=== PATIENT | female | born 1995 | race Caucasian/White ===

== ENCOUNTER 2019-05-12 22:41 | Emergency (ER) | payer OTHER ==
[2019-05-13] MEDS ORDERED: Acetaminophen 325 MG Tab PO ONE (00:47)
--- NOTE | 2019-05-13 00:52 | EDM.PDOC ---
ED HPI GENERAL MEDICAL PROBLEM - General Chief Complaint: Lower Extremity Injury/Pain Stated Complaint: INJURED L FOOT Time Seen by Provider: 05/13/19 00:40 Source of Information: Reports: Patient History Limitations: Reports: No Limitations - History of Present Illness INITIAL COMMENTS - FREE TEXT/NARRATIVE: This 23 yo female patient reports to the ED with left lateral foot and anterior foot pain. The patient reports she was playing with her dog when she tripped. The patient reports she heard a "pop" during the fall. The patient reports the incident happened at about 1930 last night. The patient has not been able to put any weight on her left foot since the time of the incident. Onset Date: 05/12/19 Onset Time: 19:30 Duration: Constant Location: Reports: Lower Extremity, Left Quality: Reports: Ache, Sharp, Throbbing Severity: Moderate Improves with: Reports: None Worsens with: Reports: None Context: Reports: Other Associated Symptoms: Reports: No Other Symptoms Left Foot Pain Score (Numeric/FACES): 8 - Related Data Allergies Allergy/AdvReac Type Severity Reaction Status Date / Time NSAIDS (Non-Steroidal Allergy Rash Verified 05/13/19 00:25 Anti-Inflamma Home Meds: Home Meds Escitalopram [Lexapro] 10 mg PO DAILY 05/13/19 [History] Past Medical History HEENT History: Reports: Impaired Vision Psychiatric History: Reports: Depression - Past Surgical History HEENT Surgical History: Reports: Other (See Below) Other HEENT Surgeries/Procedures: wisdom teeth removed GI Surgical History: Reports: Appendectomy Female Surgical History: Reports: Section Social & Family History - Tobacco Use Smoking Status *Q: Current Every Day Smoker Years of Tobacco use: 3 Packs/Tins Daily: 1 Second Hand Smoke Exposure: Yes - Recreational Drug Use Recreational Drug Use: No Review of Systems - Review of Systems Review Of Systems: ROS reveals no pertinent complaints other than HPI. ED EXAM, GENERAL - Physical Exam Exam: See Below Exam Limited By: No Limitations General Appearance: Alert, WD/WN, Mild Distress Eye Exam: Bilateral Eye: EOMI, Normal Inspection, PERRL Ears: Normal External Exam, Normal Canal, Hearing Grossly Normal, Normal TMs Nose: Normal Inspection, Normal Mucosa, No Blood Throat/Mouth: Normal Inspection, Normal Lips, Normal Teeth, Normal Gums, Normal Oropharynx, Normal Voice, No Airway Compromise Head: Atraumatic, Normocephalic Neck: Normal Inspection, Supple, Non-Tender, Full Range of Motion Respiratory/Chest: No Respiratory Distress, Lungs Clear, Normal Breath Sounds, No Accessory Muscle Use, Chest Non-Tender Cardiovascular: Normal Peripheral Pulses, Regular Rate, Rhythm, No Edema, No Gallop, No JVD, No Murmur, No Rub GI/Abdominal: Normal Bowel Sounds, Soft, Non-Tender, No Organomegaly, No Distention, No Abnormal Bruit, No Mass (Female) Exam: Deferred Rectal (Female) Exam: Deferred Back Exam: Normal Inspection, Full Range of Motion, NT Extremities: Leg Pain (left lateral foot pain) Neurological: Alert, Oriented, CN II-XII Intact, Normal Cognition, Normal Gait, Normal Reflexes, No Motor/Sensory Deficits Psychiatric: Normal Affect, Normal Mood Skin Exam: Warm, Dry, Intact, Normal Color, No Rash Lymphatic: No Adenopathy Course - Vital Signs Last Recorded V/S: Last Vital Signs Temp 36.9 C 05/13/19 00:20 Pulse 101 H 05/13/19 00:20 Resp 18 05/13/19 00:20 BP 112/62 05/13/19 00:20 Pulse Ox 100 05/13/19 00:20 - Orders/Labs/Meds Orders: Active Orders 24 hr Category Date Time Status Foot Comp Min 3V Lt [CR] Urgent Exams 05/13/19 00:39 Taken DME for Discharge [COMM] Urgent Oth 05/13/19 01:35 Ordered Meds: Medications Discontinued Medications Generic Name Dose Route Start Last Admin Trade Name Freq PRN Reason Stop Dose Admin Acetaminophen 650 mg 05/13/19 00:47 05/13/19 01:22 Tylenol PO 05/13/19 00:48 650 mg NOW ONE Administration Departure - Departure Time of Disposition: 01:35 Disposition: Home, Self-Care 01 Condition: Fair Clinical Impression: Strain of left foot Qualifiers: Encounter type: initial encounter Qualified Code(s): S96.912A - Strain of unspecified muscle and tendon at ankle and foot level, left foot, initial encounter Left ankle strain Qualifiers: Encounter type: initial encounter Qualified Code(s): S96.912A - Strain of unspecified muscle and tendon at ankle and foot level, left foot, initial encounter - Discharge Information *PRESCRIPTION DRUG MONITORING PROGRAM REVIEWED*: Not Applicable *COPY OF PRESCRIPTION DRUG MONITORING REPORT IN PATIENT [facility]: Not Applicable Instructions: Ankle Sprain, [id number], Crutch Use, Adult, [id number] Forms: ED Department Discharge Care Plan Goals: The patient was advised of the examination and x-ray results during the visit. The patient was placed in a walking boot to immobilize her ankle and foot during the visit. The patient did come with a friend's crutches which she agreed to use. The patient was encouraged to follow-up with her primary care facility if her symptoms continued or if the symptoms get worse over the next week. If the patient has any additional symptoms or concerns, the patient should either return to the emergency department or visit her primary care facility. - My Orders Last 24 Hours: My Active Orders 05/13/19 00:39 Foot Comp Min 3V Lt [CR] Urgent 05/13/19 01:35 DME for Discharge [COMM] Urgent - Assessment/Plan Last 24 Hours: My Active Orders 05/13/19 00:39 Foot Comp Min 3V Lt [CR] Urgent 05/13/19 01:35 DME for Discharge [COMM] Urgent
== END 2019-05-13 01:55 | disposition home or self-care (01) ==
LOC: DL.ED 22:41
DX: S96.912A Strain of unspecified muscle and tendon at ankle and foot level, left foot, initial encounter (principal); F32.9 Major depressive disorder, single episode, unspecified; F17.210 Nicotine dependence, cigarettes, uncomplicated; Z88.8 Allergy status to other drugs, medicaments and biological substances; Z79.899 Other long term (current) drug therapy; W01.0XXA Fall on same level from slipping, tripping and stumbling without subsequent striking against object, initial encounter
CPT/HCPCS: 73630; 99283; A9270

== ENCOUNTER 2020-01-28 22:53 | Emergency (ER) | payer OTHER ==
[2020-01-28] MEDS ORDERED: Sodium Chloride 0.9% 1,000 ML IV ONE (23:54)
[2020-01-28] MEDS ORDERED: Ondansetron 4 MG/2 ML SDV IVPUSH ONE (23:54)
[2020-01-28] MEDS ORDERED: Pantoprazole 80 MG in Sodium Chloride 0.9% 100 ML IV ONE (23:54)
[2020-01-29 00:21] LABS: ANION GAP 10.9 mEq/L (7-13); CHLORIDE,CL 103 mmol/L (98-107); SODIUM,NA 140 mmol/L (136-145)
--- NOTE | 2020-01-29 01:16 | EDM.PDOC ---
ED HPI GENERAL MEDICAL PROBLEM - General Chief Complaint: Gastrointestinal Problem Stated Complaint: PUKING UP BLOOD 10 MINIUTES AGO Time Seen by Provider: 01/28/20 23:45 Source of Information: Reports: Patient History Limitations: Reports: No Limitations - History of Present Illness INITIAL COMMENTS - FREE TEXT/NARRATIVE: threw up blood x 2 tonight after eating pizza. Photos, undigested food with one corner of photo with small amount of blood. At lest weekly ETOH, Heavier use this week. No fever chills or cough. Abdominal Pain Score (Numeric/FACES): 8 - Related Data Allergies Allergy/AdvReac Type Severity Reaction Status Date / Time NSAIDS (Non-Steroidal Allergy Rash Verified 01/28/20 23:43 Anti-Inflamma Home Meds: Home Meds QUEtiapine [SEROquel] 50 mg PO BEDTIME 01/29/20 [History] Past Medical History HEENT History: Reports: Impaired Vision Psychiatric History: Reports: Depression - Past Surgical History HEENT Surgical History: Reports: Other (See Below) Other HEENT Surgeries/Procedures: wisdom teeth removed GI Surgical History: Reports: Appendectomy Female Surgical History: Reports: Section Social & Family History - Family History Family Medical History: Noncontributory - Tobacco Use Smoking Status *Q: Current Every Day Smoker Years of Tobacco use: 4 Packs/Tins Daily: 0.5 - Caffeine Use Caffeine Use: Reports: Soda - Alcohol Use Days Per Week of Alcohol Use: 1 Number of Drinks Per Day: 0 Total Drinks Per Week: 0 - Recreational Drug Use Recreational Drug Use: No ED ROS GENERAL - Review of Systems Review Of Systems: Comprehensive ROS is negative, except as noted in HPI. ED EXAM, GI/ABD - Physical Exam Exam: See Below Exam Limited By: No Limitations General Appearance: Alert, No Apparent Distress Eyes: Bilateral: EOMI Ears: Normal External Exam Nose: Normal Inspection Throat/Mouth: Normal Inspection Head: Atraumatic, Normocephalic Neck: Normal Inspection Respiratory/Chest: No Respiratory Distress, Lungs Clear, Normal Breath Sounds Cardiovascular: Normal Peripheral Pulses, Regular Rate, Rhythm GI/Abdominal Exam: Normal Bowel Sounds, Soft, Non-Tender Back Exam: Full Range of Motion Extremities: Normal Inspection Neurological: Alert, Oriented, Normal Cognition Psychiatric: Normal Affect, Flat Affect Skin Exam: Warm, Dry, Intact, Normal Color Course - Vital Signs Last Recorded V/S: Last Vital Signs Temp 98.3 F 01/28/20 23:43 Pulse 107 H 01/28/20 23:43 Resp 16 01/28/20 23:43 BP 125/75 01/29/20 00:02 Pulse Ox 96 01/28/20 23:43 - Orders/Labs/Meds Labs: Laboratory Tests 01/28/20 01/28/20 01/29/20 Range/Units 23:54 23:54 00:06 WBC 8.0 (5.0-10.0) 10^3/uL RBC 4.88 (4.2-5.4) 10^6/uL Hgb 14.1 (12.0-16.0) g/dL Hct 40.8 (37.0-47.0) % MCV 83.6 (80-100) fL MCH 28.9 (27.0-34.0) pg MCHC 34.6 (33.0-35.0) g/dL Plt Count 218 (150-450) 10^3/uL Neut % (Auto) 58.9 (42.2-75.2) % Lymph % (Auto) 28.5 (20.5-50.1) % [place] % (Auto) 7.0 (2-8) % Eos % (Auto) 5.1 H (1.0-3.0) % Baso % (Auto) 0.5 (0.0-1.0) % Sodium 140 (136-145) mmol/L Potassium 3.9 (3.5-5.1) mmol/L Chloride 103 (98-107) mmol/L Carbon Dioxide 30 (21-32) mmol/L Anion Gap 10.9 (7-13) mEq/L BUN 16 (7-18) mg/dL Creatinine 0.68 (0.55-1.02) mg/dL Est Cr Clr Drug Dosing 116.77 mL/min Estimated GFR (MDRD) > 60 BUN/Creatinine Ratio 23.5 (No establ ref range) Glucose 98 (74-99) mg/dL Calcium 8.3 L (8.5-10.1) mg/dL Total Bilirubin 0.2 (0.2-1.0) mg/dL AST 48 H (15-37) U/L ALT 66 H (14-59) U/L Alkaline Phosphatase 96 (46-116) U/L Total Protein 7.5 (6.4-8.2) g/dL Albumin 3.7 (3.4-5.0) g/dL Globulin 3.8 Albumin/Globulin Ratio 1.0 Amylase 37 (25-115) U/L Lipase 125 (73-393) U/L Urine Color Yellow (YELLOW) Urine Appearance Clear (CLEAR) Urine pH 6.5 (5.0-9.0) Ur Specific [place] 1.025 (1.005-1.030) Urine Protein Negative (NEGATIVE) Urine Glucose (UA) Negative (NEGATIVE) Urine Ketones Trace H (NEGATIVE) Urine Occult Blood Negative (NEGATIVE) Urine Nitrite Negative (NEGATIVE) Urine Bilirubin Negative (NEGATIVE) Urine Urobilinogen 0.2 (0.2-1.0) mg/dL Ur Leukocyte Esterase Negative (NEGATIVE) Urine HCG, Qual Urine Opiates Screen (NEGATIVE) Ur Oxycodone Screen (NEGATIVE) Urine Methadone Screen (NEGATIVE) Ur Barbiturates Screen (NEGATIVE) U Tricyclic Antidepress (NEGATIVE) Ur Phencyclidine Scrn (NEGATIVE) Ur Amphetamine Screen (NEGATIVE) U Methamphetamines Scrn (NEGATIVE) Urine MDMA Screen (NEGATIVE) U Benzodiazepines Scrn (NEGATIVE) Urine Cocaine Screen (NEGATIVE) U Marijuana (THC) Screen (NEGATIVE) Ethyl Alcohol < 3 (0) mg/dL 01/29/20 01/29/20 Range/Units 00:06 00:06 WBC (5.0-10.0) 10^3/uL RBC (4.2-5.4) 10^6/uL Hgb (12.0-16.0) g/dL Hct (37.0-47.0) % MCV (80-100) fL MCH (27.0-34.0) pg MCHC (33.0-35.0) g/dL Plt Count (150-450) 10^3/uL Neut % (Auto) (42.2-75.2) % Lymph % (Auto) (20.5-50.1) % [place] % (Auto) (2-8) % Eos % (Auto) (1.0-3.0) % Baso % (Auto) (0.0-1.0) % Sodium (136-145) mmol/L Potassium (3.5-5.1) mmol/L Chloride (98-107) mmol/L Carbon Dioxide (21-32) mmol/L Anion Gap (7-13) mEq/L BUN (7-18) mg/dL Creatinine (0.55-1.02) mg/dL Est Cr Clr Drug Dosing mL/min Estimated GFR (MDRD) BUN/Creatinine Ratio (No establ ref range) Glucose (74-99) mg/dL Calcium (8.5-10.1) mg/dL Total Bilirubin (0.2-1.0) mg/dL AST (15-37) U/L ALT (14-59) U/L Alkaline Phosphatase (46-116) U/L Total Protein (6.4-8.2) g/dL Albumin (3.4-5.0) g/dL Globulin Albumin/Globulin Ratio Amylase (25-115) U/L Lipase (73-393) U/L Urine Color (YELLOW) Urine Appearance (CLEAR) Urine pH (5.0-9.0) Ur Specific [place] (1.005-1.030) Urine Protein (NEGATIVE) Urine Glucose (UA) (NEGATIVE) Urine Ketones (NEGATIVE) Urine Occult Blood (NEGATIVE) Urine Nitrite (NEGATIVE) Urine Bilirubin (NEGATIVE) Urine Urobilinogen (0.2-1.0) mg/dL Ur Leukocyte Esterase (NEGATIVE) Urine HCG, Qual Negative Urine Opiates Screen Negative (NEGATIVE) Ur Oxycodone Screen Negative (NEGATIVE) Urine Methadone Screen Negative (NEGATIVE) Ur Barbiturates Screen Negative (NEGATIVE) U Tricyclic Antidepress Positive H (NEGATIVE) Ur Phencyclidine Scrn Negative (NEGATIVE) Ur Amphetamine Screen Negative (NEGATIVE) U Methamphetamines Scrn Negative (NEGATIVE) Urine MDMA Screen Negative (NEGATIVE) U Benzodiazepines Scrn Negative (NEGATIVE) Urine Cocaine Screen Negative (NEGATIVE) U Marijuana (THC) Screen Negative (NEGATIVE) Ethyl Alcohol (0) mg/dL Meds: Medications Discontinued Medications Generic Name Dose Route Start Last Admin Trade Name Freq PRN Reason Stop Dose Admin Sodium Chloride 1,000 mls @ 999 mls/hr 01/28/20 23:54 01/29/20 00:09 Normal Saline IV 01/29/20 00:54 999 mls/hr .BOLUS ONE Administration Pantoprazole Sodium 80 mg/ 100 mls @ 200 mls/hr 01/28/20 23:54 01/29/20 00:09 Sodium Chloride IV 01/29/20 00:23 200 mls/hr .BOLUS ONE Administration Ondansetron HCl 4 mg 01/28/20 23:54 01/29/20 00:09 Zofran IVPUSH 01/28/20 23:55 4 mg ONETIME ONE Administration Departure - Departure Time of Disposition: 01:02 Disposition: Home, Self-Care 01 Condition: Good Clinical Impression: Vomiting Qualifiers: Vomiting type: hematemesis Nausea presence: unspecified Qualified Code(s): K92.0 - Hematemesis - Discharge Information *PRESCRIPTION DRUG MONITORING PROGRAM REVIEWED*: No *COPY OF PRESCRIPTION DRUG MONITORING REPORT IN PATIENT [facility]: No Instructions: Vomiting, Adult Forms: ED Department Discharge Additional Instructions: soft bland diet avoid alcohol caffeine and spicy food omeprazole 20mg daily clinic follow up next week Sepsis Event Note (ED) - Evaluation Sepsis Screening Result: No Definite Risk - Focused Exam Vital Signs: Vital Signs Temp Pulse Resp BP Pulse Ox 01/29/20 00:02 125/75 01/28/20 23:43 98.3 F 107 H 16 97/68 96
== END 2020-01-29 01:17 | disposition home or self-care (01) ==
LOC: DL.ED 22:53
DX: K92.0 Hematemesis (principal); F32.9 Major depressive disorder, single episode, unspecified; F17.210 Nicotine dependence, cigarettes, uncomplicated; Z88.6 Allergy status to analgesic agent; Z79.899 Other long term (current) drug therapy
CPT/HCPCS: 36415; 80053; 80305; 80307; 81003; 81025; 82150; 83690; 85025; 96361; 96374; 96375; 99284; C9113; J2405; J7030; J7050

== ENCOUNTER 2023-02-07 17:52 | Emergency (ER) | payer OTHER ==
[2023-02-07 18:50] LABS: BASOPHILS PERCENT AUTO 0.2 % (0.0-1.0); EOSINOPHILS PERCENT AUTO 3.3 % (1.0-3.0); HEMATOCRIT 35.5 % (37.0-47.0); HEMOGLOBIN 12.4 g/dL (12.0-16.0); LYMPHOCYTES PERCENT AUTO 16.4 % (20.5-50.1); MEAN CORPUSCULAR HEMOGLOBIN 28.7 pg (27.0-34.0); MEAN CORPUSCULAR HGB CONC 34.9 g/dL (33.0-35.0); MEAN CORPUSCULAR VOLUME 82.2 fL (80-100); NEUTROPHILS PERCENT AUTO 73.1 % (42.2-75.2); PLATELET COUNT,PLT 231 10^3/uL (150-450); RED BLOOD CELL COUNT 4.32 10^6/uL (4.2-5.4); WHITE BLOOD CELL COUNT,WBC 8.7 10^3/uL (5.0-10.0)
[2023-02-07 19:17] LABS: APPEARANCE,URINE CLEAR (CLEAR); BILIRUBIN,URINE NEGATIVE (NEGATIVE); COLOR,URINE YELLOW (YELLOW); GLUCOSE,URINE NEGATIVE (NEGATIVE); KETONES,URINE NEGATIVE (NEGATIVE); LEUKOCYTE ESTERASE,URINE NEGATIVE (NEGATIVE); NITRITE,URINE NEGATIVE (NEGATIVE); OCCULT BLOOD,URINE SMALL (NEGATIVE); PROTEIN,URINE NEGATIVE (NEGATIVE); UROBILINOGEN,URINE 0.2 mg/dL (0.2-1.0)
[2023-02-07 19:44] LABS: BACTERIA,URINE FEW /HPF (0-FEW/HPF); EPITHELIAL CELLS,URINE FEW /HPF (NOT SEEN); RBC,URINE 0-5 /HPF (0-5); WBC,URINE 0-5 /HPF (0-5/HPF)
== END 2023-02-07 22:13 | disposition home or self-care (01) ==
LOC: DL.ED 17:52
DX: O20.9 Hemorrhage in early pregnancy, unspecified (principal); Z90.49 Acquired absence of other specified parts of digestive tract; Z98.890 Other specified postprocedural states; Z88.6 Allergy status to analgesic agent; Z3A.12 12 weeks gestation of pregnancy
CPT/HCPCS: 36415; 76801; 81001; 84702; 85025; 86900; 86901; 99284

== ENCOUNTER 2023-07-31 08:40 | Inpatient (IN) | payer OTHER ==
[2023-07-31] MEDS: Lactated Ringers 1,000 ML IV SCH ×2 (08:50→12:02)
[2023-07-31] MEDS ORDERED: Citric Acid/Sodium Citrate Solution 30 ML Cup PO ONE (08:55)
[2023-07-31] MEDS ORDERED: Tranexamic Acid 1,000 MG in Sodium Chloride 0.9% 100 ML IV PRN (08:55)
[2023-07-31] MEDS ORDERED: Oxytocin 10 Units/1 ML SDV IM PRN (08:55)
[2023-07-31] MEDS ORDERED: Methylergonovine 0.2 MG Tab PO PRN (08:55)
[2023-07-31] MEDS ORDERED: Misoprostol 400 MCG (4 X 100 MCG TAB) RECTAL ONE (08:55)
[2023-07-31] MEDS ORDERED: Carboprost Tromethamine 250 MCG/1 ML Amp IM PRN (08:55)
[2023-07-31] MEDS ORDERED: Sodium Chloride 0.9% 10 ML Syringe FLUSH PRN (08:55)
[2023-07-31] MEDS ORDERED: Lactated Ringers 1,000 ML IV SCH ×2 (09:00→12:45)
[2023-07-31] MEDS ORDERED: Oxytocin/Normal Saline 30 UNIT/500 ML BAG IV SCH (09:00)
[2023-07-31] MEDS ORDERED: ceFAZolin 1 GM Vial ONE (09:02)
[2023-07-31 09:05] LABS: BASOPHILS PERCENT AUTO 0.2 % (0.0-1.0); EOSINOPHILS PERCENT AUTO 0.9 % (1.0-3.0); HEMATOCRIT 36.3 % (37.0-47.0); HEMOGLOBIN 12.4 g/dL (12.0-16.0); LYMPHOCYTES PERCENT AUTO 11.7 % (20.5-50.1); MEAN CORPUSCULAR HEMOGLOBIN 27.7 pg (27.0-34.0); MEAN CORPUSCULAR HGB CONC 34.2 g/dL (33.0-35.0); MEAN CORPUSCULAR VOLUME 81.2 fL (80-100); MONOCYTES PERCENT AUTO 6.8 % (2-8); NEUTROPHILS PERCENT AUTO 80.4 % (42.2-75.2); PLATELET COUNT,PLT 243 10^3/uL (150-450); RED BLOOD CELL COUNT 4.47 10^6/uL (4.2-5.4); WHITE BLOOD CELL COUNT,WBC 9.8 10^3/uL (5.0-10.0)
[2023-07-31] MEDS ORDERED: ceFAZolin 2 GM Vial IVPUSH ONE (09:08)
[2023-07-31] MEDS ORDERED: fentaNYL 100 MCG/2 ML SDV IV ONE (09:08)
[2023-07-31] MEDS ORDERED: Tranexamic Acid 1,000 MG/10 ML Vial IV ONE (09:08)
[2023-07-31] MEDS ORDERED: Ondansetron 4 MG/2 ML SDV IV ONE (09:08)
[2023-07-31] MEDS ORDERED: Lactated Ringers 1,000 ML IV ONE (09:08)
[2023-07-31] MEDS ORDERED: ePHEDrine 50 MG/ML SDV IV ONE (09:08)
[2023-07-31] MEDS ORDERED: HYDROmorphone 1 MG/ML Syringe IV ONE (09:08)
[2023-07-31] MEDS ORDERED: ceFAZolin 2 GM Vial IV ONE (09:08)
[2023-07-31] MEDS ORDERED: fentaNYL 100 MCG/2 ML SDV ONE (10:22)
[2023-07-31] MEDS ORDERED: diphenhydrAMINE 50 MG/ML SDV IVPUSH PRN ×2 (12:33→12:41)
[2023-07-31] MEDS ORDERED: Methylergonovine 0.2 MG/1 ML Amp IM PRN (12:41)
[2023-07-31] MEDS ORDERED: ePHEDrine 50 MG/ML SDV IVPUSH PRN (12:41)
[2023-07-31] MEDS ORDERED: Acetaminophen 325 MG Tab PO PRN (12:41)
[2023-07-31] MEDS ORDERED: Naloxone 2 MG/2 ML Syringe IVPUSH PRN (12:41)
[2023-07-31] MEDS ORDERED: Acetaminophen/oxyCODONE 325-5 MG Tab PO PRN (12:41)
[2023-07-31] MEDS: Simethicone 80 MG Tab.Chew PO SCH ×4 (14:08→22:04)
[2023-07-31] MEDS: Sodium Chloride 0.9% 10 ML Syringe FLUSH SCH ×2 (14:09→22:04)
[2023-07-31] MEDS: Acetaminophen/oxyCODONE 325-5 MG Tab PO PRN ×2 (15:33→19:31)
[2023-07-31] MEDS: Docusate Sodium 100 MG Cap PO PRN ×2 (15:33→19:31)
[2023-08-01] MEDS: Acetaminophen/oxyCODONE 325-5 MG Tab PO PRN ×5 (01:15→21:45)
[2023-08-01 07:29] LABS: HEMATOCRIT 30.4 % (37.0-47.0); HEMOGLOBIN 10.1 g/dL (12.0-16.0); MEAN CORPUSCULAR HEMOGLOBIN 27.8 pg (27.0-34.0); MEAN CORPUSCULAR HGB CONC 33.2 g/dL (33.0-35.0); MEAN CORPUSCULAR VOLUME 83.7 fL (80-100); RED BLOOD CELL COUNT 3.63 10^6/uL (4.2-5.4); WHITE BLOOD CELL COUNT,WBC 5.8 10^3/uL (5.0-10.0)
[2023-08-01] MEDS: Sodium Chloride 0.9% 10 ML Syringe FLUSH SCH (09:00)
[2023-08-01] MEDS: Simethicone 80 MG Tab.Chew PO SCH ×4 (09:07→21:44)
[2023-08-01] MEDS: Prenatal Multivitamin with Calcium/Folic Acid/Iron Tab PO SCH (09:08)
[2023-08-01] MEDS: Docusate Sodium 100 MG Cap PO PRN ×2 (09:09→21:44)
[2023-08-01] MEDS: Ondansetron 4 MG/2 ML SDV IVPUSH PRN (09:16)
[2023-08-01] MEDS ORDERED: Cyclobenzaprine 10 MG Tab PO PRN (10:26)
[2023-08-01] MEDS ORDERED: Aspirin 325 MG Tab.EC PO ONE (10:26)
[2023-08-01] MEDS ORDERED: Ferrous Sulfate 325 MG Tab ONE (13:25)
[2023-08-01] MEDS: Ferrous Sulfate 325 MG Tab PO SCH (13:25)
[2023-08-01] MEDS ORDERED: Metoclopramide 10 MG/2 ML SDV IVPUSH ONE (21:54)
[2023-08-02] MEDS: Acetaminophen/oxyCODONE 325-5 MG Tab PO PRN ×3 (02:36→14:04)
[2023-08-02] MEDS: Sodium Chloride 0.9% 10 ML Syringe FLUSH SCH ×2 (02:37→08:14)
[2023-08-02] MEDS: Simethicone 80 MG Tab.Chew PO SCH ×2 (08:10→14:05)
[2023-08-02] MEDS: Docusate Sodium 100 MG Cap PO PRN (08:12)
[2023-08-02] MEDS: Prenatal Multivitamin with Calcium/Folic Acid/Iron Tab PO SCH (08:12)
[2023-08-02] MEDS: Ferrous Sulfate 325 MG Tab PO SCH (08:13)
[2023-08-02 08:47] LABS: HEMATOCRIT 33.6 % (37.0-47.0); HEMOGLOBIN 11.1 g/dL (12.0-16.0); MEAN CORPUSCULAR HEMOGLOBIN 27.8 pg (27.0-34.0); WHITE BLOOD CELL COUNT,WBC 7.5 10^3/uL (5.0-10.0)
[2023-08-02 09:06] LABS: CREATININE 0.67 mg/dL (0.55-1.02); EST CRCL DRUG DOSING (CG) 115.5 mL/min; URIC ACID 7.1 mg/dL (2.6-6.0)
[2023-08-02] MEDS ORDERED: Measles, Mumps & Rubella Vaccine 0.5 ML SDV SUBCUT ONE (09:25)
[2023-08-02] MEDS: Ondansetron 4 MG/2 ML SDV IVPUSH PRN (11:10)
[2023-08-02 11:58] LABS: APPEARANCE,URINE CLEAR (CLEAR); BILIRUBIN,URINE NEGATIVE (NEGATIVE); COLOR,URINE YELLOW (YELLOW); GLUCOSE,URINE NEGATIVE (NEGATIVE); KETONES,URINE NEGATIVE (NEGATIVE); LEUKOCYTE ESTERASE,URINE NEGATIVE (NEGATIVE); NITRITE,URINE NEGATIVE (NEGATIVE); OCCULT BLOOD,URINE MODERATE (NEGATIVE); PROTEIN,URINE NEGATIVE (NEGATIVE); UROBILINOGEN,URINE 0.2 mg/dL (0.2-1.0)
[2023-08-02 12:10] LABS: CREATININE,URINE RAND 96.36 mg/dL (No establ ref range); PROTEIN CREATININE RATIO,URINE 268.8 mg/g (<150.0); PROTEIN,URINE RANDOM 25.9 mg/dL (0.0-11.9)
[2023-08-02] MEDS ORDERED: fentaNYL 100 MCG/2 ML SDV IV ONE (16:35)
== END 2023-08-02 16:36 | disposition home or self-care (01) | DRG 787 ==
LOC: DL.OBCHECK 08:40 → DL.OB 09:02
PROVIDERS: ADMIT Family Medicine; ATTEND Family Medicine
PROC: 10D00Z1 Extraction of Products of Conception, Low, Open Approach (ICD-10-PCS; principal; 2023-07-31 09:00)
DX: O34.211 Maternal care for low transverse scar from previous cesarean delivery (principal); O99.354 Diseases of the nervous system complicating childbirth; O99.824 Streptococcus B carrier state complicating childbirth; O99.214 Obesity complicating childbirth; Z37.0 Single live birth; Z3A.37 37 weeks gestation of pregnancy; G43.909 Migraine, unspecified, not intractable, without status migrainosus
CPT/HCPCS: 01961; 36415; 81003; 82565; 82570; 83615; 84156; 84450; 84460; 84520; 84550; 85025; 85027; 86850; 86900; 86901; 90471; 90707; 94010; A9270-GY; J0690; J1170; J1200; J2405; J2590; J2765; J3010; J3490; J7120

== ENCOUNTER 2023-12-14 13:10 | Emergency (ER) | payer SELFPAY ==
[2023-12-14] MEDS: Ondansetron 4 MG Tab.DIS PO ONE (13:43)
[2023-12-14 13:45] LABS: BASOPHILS PERCENT AUTO 0.7 % (0.0-1.0); EOSINOPHILS PERCENT AUTO 5.1 % (1.0-3.0); HEMATOCRIT 38.1 % (37.0-47.0); HEMOGLOBIN 13.1 g/dL (12.0-16.0); LYMPHOCYTES PERCENT AUTO 19.8 % (20.5-50.1); MEAN CORPUSCULAR HEMOGLOBIN 26.4 pg (27.0-34.0); MEAN CORPUSCULAR HGB CONC 34.4 g/dL (33.0-35.0); MEAN CORPUSCULAR VOLUME 76.7 fL (80-100); MONOCYTES PERCENT AUTO 6.2 % (2-8); NEUTROPHILS PERCENT AUTO 68.2 % (42.2-75.2); PLATELET COUNT,PLT 247 10^3/uL (150-450); RED BLOOD CELL COUNT 4.97 10^6/uL (4.2-5.4); WHITE BLOOD CELL COUNT,WBC 7.5 10^3/uL (5.0-10.0)
[2023-12-14] MEDS: Ondansetron 4 MG/2 ML SDV IVPUSH ONE (14:06)
== END 2023-12-14 14:12 | disposition home or self-care (01) ==
LOC: DL.ED 13:10
DX: B34.9 Viral infection, unspecified (principal); R11.2 Nausea with vomiting, unspecified; E66.9 Obesity, unspecified; Z79.899 Other long term (current) drug therapy; Z88.6 Allergy status to analgesic agent; Z75.8 Other problems related to medical facilities and other health care
CPT/HCPCS: 36415; 85025; 99284; A9270

== ENCOUNTER 2024-04-05 12:54 | Emergency (ER) | payer SELFPAY | END 2024-04-05 15:08 | disposition home or self-care (01) | LOC: DL.ED 12:54 | DX: S93.601A Unspecified sprain of right foot, initial encounter (principal); E66.9 Obesity, unspecified; Z88.8 Allergy status to other drugs, medicaments and biological substances; Z79.899 Other long term (current) drug therapy; Z90.49 Acquired absence of other specified parts of digestive tract; Z68.41 Body mass index [BMI] 40.0-44.9, adult; W18.49XA Other slipping, tripping and stumbling without falling, initial encounter | CPT/HCPCS: 73630-RT; 99283 ==

== ENCOUNTER 2024-11-23 13:24 | Emergency (ER) | payer SELFPAY | END 2024-11-23 14:24 | disposition home or self-care (01) | LOC: DL.ED 13:24 | DX: S92.512A Displaced fracture of proximal phalanx of left lesser toe(s), initial encounter for closed fracture (principal); Z88.8 Allergy status to other drugs, medicaments and biological substances; Z79.899 Other long term (current) drug therapy; W22.8XXA Striking against or struck by other objects, initial encounter; Y93.89 Activity, other specified | CPT/HCPCS: 73660-T1; 99282; 99283 ==

== ENCOUNTER 2025-02-20 12:27 | Emergency (ER) | payer SELFPAY ==
[2025-02-20] MEDS ORDERED: Sodium Chloride 0.9% 10 ML Syringe FLUSH PRN (13:54)
[2025-02-20] MEDS: Dexamethasone 4 MG/ML SDV IVPUSH ONE (14:01)
[2025-02-20] MEDS: diphenhydrAMINE 50 MG/ML SDV IVPUSH ONE (14:01)
[2025-02-20] MEDS: SUMAtriptan 6 MG/0.5 ML SDV SUBCUT ONE (14:28)
== END 2025-02-20 15:58 | disposition home or self-care (01) ==
LOC: DL.ED 12:27
DX: G43.511 Persistent migraine aura without cerebral infarction, intractable, with status migrainosus (principal); Z88.8 Allergy status to other drugs, medicaments and biological substances; Z79.899 Other long term (current) drug therapy
CPT/HCPCS: 70450; 96372; 96374; 96375; 99283; 99283-25; J1100; J1200; J2765; J3030

== ENCOUNTER 2025-05-31 00:01 | Emergency (ER) | payer MEDICAID ==
[2025-05-31] MEDS: Ondansetron 4 MG Tab.DIS PO ONE (00:32)
[2025-05-31 00:39] LABS: BASOPHILS PERCENT AUTO 0.9 % (0.0-1.0); EOSINOPHILS PERCENT AUTO 2.2 % (1.0-3.0); LYMPHOCYTES PERCENT AUTO 20.2 % (20.5-50.1); MONOCYTES PERCENT AUTO 5.9 % (2-8); NEUTROPHILS PERCENT AUTO 70.8 % (42.2-75.2); PLATELET COUNT,PLT 213 10^3/uL (150-450); RED BLOOD CELL COUNT 4.75 10^6/uL (4.2-5.4); WHITE BLOOD CELL COUNT,WBC 8.6 10^3/uL (5.0-10.0)
[2025-05-31 00:59] LABS: A/G RATIO 0.9; ALANINE AMINOTRANSFERASE,ALT 122 U/L (14-59); ASPARTATE AMNIOTRANSFERASE,AST 133 U/L (15-37); BILIRUBIN TOTAL 0.7 mg/dL (0.2-1.0); BLOOD UREA NITROGEN,BUN 6 mg/dL (7-18); CARBON DIOXIDE,CO2 26 mmol/L (21-32); CHLORIDE,CL 97 mmol/L (98-107); CREATININE 0.67 mg/dL (0.55-1.02); EST CRCL DRUG DOSING (CG) 108.91 mL/min; GLUCOSE RANDOM 141 mg/dL (70-99); POTASSIUM,K 4.5 mmol/L (3.5-5.1); PROTEIN TOTAL,TP 8.5 g/dL (6.4-8.2); SODIUM,NA 136 mmol/L (136-145)
[2025-05-31 01:00] LABS: ESTIMATED GFR 123 mL/min (>=60); ETHANOL BLOOD MEDICAL < 3 mg/dL (0)
[2025-05-31 01:24] LABS: APPEARANCE,URINE CLEAR (CLEAR); GLUCOSE,URINE NEGATIVE (NEGATIVE); OCCULT BLOOD,URINE NEGATIVE (NEGATIVE)
[2025-05-31 01:27] LABS: AMPHETAMINES,URINE NEGATIVE (NEGATIVE); BARBITURATES,URINE NEGATIVE (NEGATIVE); MDMA (ECSTASY), URINE NEGATIVE (NEGATIVE); METHAMPHETAMINES,URINE NEGATIVE (NEGATIVE); OPIATES,URINE NEGATIVE (NEGATIVE); OXYCODONE,URINE NEGATIVE (NEGATIVE); PHENCYCLIDINE,URINE NEGATIVE (NEGATIVE); TCA,URINE NEGATIVE (NEGATIVE)
== END 2025-05-31 01:54 | disposition home or self-care (01) ==
LOC: DL.ED 00:01
DX: F10.129 Alcohol abuse with intoxication, unspecified (principal); E83.42 Hypomagnesemia; R94.5 Abnormal results of liver function studies; E86.0 Dehydration; Y90.9 Presence of alcohol in blood, level not specified
CPT/HCPCS: 36415; 80053; 80305; 80307; 81003; 81025; 83735; 85025; 99284; A9270; J7030